=== PATIENT | male | born 1965 | race African-American/Black ===

== ENCOUNTER 2016-05-31 09:54 | Outpatient (CLI) | payer OTHER | END 2016-05-31 09:55 | disposition home or self-care (01) | DX: G47.33 Obstructive sleep apnea (adult) (pediatric) (principal) ==

== ENCOUNTER 2016-10-22 11:03 | Outpatient (CLI) | payer OTHER ==
[2016-10-22 19:54] LABS: ALBUMIN/GLOBULIN RATIO 1.4 (1.0-2.2); BILIRUBIN,TOTAL 0.6 mg/dL (0.2-1.0); BUN - BLOOD UREA NITROGEN 16 mg/dL (6-20); CALCIUM 9.5 mg/dL (8.5-10.3); CARBON DIOXIDE - CO2 29 mmol/L (21-32); CHLORIDE 100 mmol/L (101-111); CHOL/HDL RATIO 4.8 (<5.0); CHOLESTEROL 134 mg/dL; CREATININE 1.1 mg/dL (0.6-1.2); GFR - MDRD 86 (>89); GLUCOSE 115 mg/dL (70-100); HDL CHOLESTEROL 28 mg/dL; POTASSIUM 4.2 mmol/L (3.5-5.0); SODIUM 138 mmol/L (135-145); TOTAL PROTEIN 7.4 g/dL (6.7-8.2); TRIGLYCERIDES 392 mg/dL; VLDL CHOLESTEROL 78 mg/dL
== END 2016-10-22 11:04 | disposition home or self-care (01) ==
LOC: LAB.WCP 11:03
PROVIDERS: ATTEND Family Medicine
DX: E78.5 Hyperlipidemia, unspecified (principal); E11.9 Type 2 diabetes mellitus without complications
CPT/HCPCS: 36415; 80053; 80061; 83036

== ENCOUNTER 2017-10-01 10:53 | Outpatient (CLI) | payer OTHER | END 2017-10-01 10:54 | disposition home or self-care (01) | LOC: SC 10:53 | PROVIDERS: ATTEND Nurse Practitioner Family | DX: G47.33 Obstructive sleep apnea (adult) (pediatric) (principal) | CPT/HCPCS: 99212; 99214 ==

== ENCOUNTER 2017-10-11 07:27 | Outpatient (CLI) | payer OTHER ==
[2017-10-11 12:35] LABS: BASOPHILS # (AUTO) 0.1 10^3/uL (0.0-0.1); BASOPHILS % (AUTO) 1.2 %; EOSINOPHILS # (AUTO) 0.2 10^3/uL (0.0-0.7); EOSINOPHILS % (AUTO) 3.2 %; HGB - HEMOGLOBIN 16.5 g/dL (14.0-18.0); LYMPHOCYTES # (AUTO) 2.4 10^3/uL (1.5-3.5); LYMPHOCYTES % (AUTO) 35.6 %; MEAN CORPUSCULAR HEMOGLOBIN 28.3 pg (27.0-31.0); MEAN CORPUSCULAR HGB CONC 33.3 g/dL (32.0-36.0); MEAN CORPUSCULAR VOLUME 84.9 fL (80.0-94.0); MONOCYTES # (AUTO) 0.6 10^3/uL (0.0-1.0); MONOCYTES % (AUTO) 8.7 %; NEUTROPHILS # (AUTO) 3.4 10^3/uL (1.5-6.6); NEUTROPHILS % (AUTO) 51.3 %; PLT - PLATELET COUNT 211 10^3/uL (130-450); RED BLOOD COUNT 5.82 10^6/uL (4.70-6.10); RED CELL DISTRIBUTION WIDTH 13.3 % (12.0-15.0); WHITE BLOOD COUNT 6.7 x10^3/uL (4.8-10.8)
[2017-10-11 12:51] LABS: ALBUMIN 4.3 g/dL (3.2-5.5); ALBUMIN/GLOBULIN RATIO 1.3 (1.0-2.2); ALKALINE PHOSPHATASE 75 IU/L (42-121); ALT ALANINE AMINOTRANSFERASE 39 IU/L (10-60); AST ASPARTATE AMINOTRANSFERASE 33 IU/L (10-42); BUN - BLOOD UREA NITROGEN 15 mg/dL (6-20); CALCIUM 9.6 mg/dL (8.5-10.3); CARBON DIOXIDE - CO2 25 mmol/L (21-32); CHLORIDE 95 mmol/L (101-111); CHOLESTEROL 191 mg/dL; CREATININE 0.9 mg/dL (0.6-1.2); GFR - MDRD 108 (>89); GLUCOSE 146 mg/dL (70-100); HDL CHOLESTEROL 32 mg/dL; SODIUM 131 mmol/L (135-145); TOTAL PROTEIN 7.5 g/dL (6.7-8.2)
[2017-10-11 12:56] LABS: HB2 TOTAL 17.8 g/dL; HEMOGLOBIN A1C 1.33 g/dL
[2017-10-11 13:48] LABS: LDL CHOLESTEROL,DIRECT 46 mg/dL; LDLD/HDL RATIO 1.4 (<3.6)
== END 2017-10-11 07:28 | disposition home or self-care (01) ==
LOC: LAB.WCP 07:27
PROVIDERS: ATTEND Family Medicine
DX: E11.9 Type 2 diabetes mellitus without complications (principal); I10 Essential (primary) hypertension; E78.5 Hyperlipidemia, unspecified
CPT/HCPCS: 36415; 80053; 80061; 83036; 83721; 85025

== ENCOUNTER 2017-12-05 13:53 | Outpatient (CLI) | payer OTHER | END 2017-12-05 13:54 | disposition home or self-care (01) | LOC: SC 13:53 | PROVIDERS: ATTEND Nurse Practitioner Family | DX: G47.33 Obstructive sleep apnea (adult) (pediatric) (principal) | CPT/HCPCS: 99212; 99214 ==

== ENCOUNTER 2018-04-02 07:18 | Outpatient (CLI) | payer OTHER ==
[2018-04-02 12:13] LABS: BASOPHILS # (AUTO) 0.1 10^3/uL (0.0-0.1); BASOPHILS % (AUTO) 1.9 %; EOSINOPHILS # (AUTO) 0.3 10^3/uL (0.0-0.7); HGB - HEMOGLOBIN 16.3 g/dL (14.0-18.0); LYMPHOCYTES # (AUTO) 2.4 10^3/uL (1.5-3.5); LYMPHOCYTES % (AUTO) 41.5 %; MEAN CORPUSCULAR HEMOGLOBIN 29.2 pg (27.0-31.0); MEAN CORPUSCULAR HGB CONC 34.2 g/dL (32.0-36.0); MEAN CORPUSCULAR VOLUME 85.3 fL (80.0-94.0); MEAN PLATELET VOLUME 8.7 fL (7.4-11.4); MONOCYTES # (AUTO) 0.5 10^3/uL (0.0-1.0); MONOCYTES % (AUTO) 8.5 %; NEUTROPHILS # (AUTO) 2.5 10^3/uL (1.5-6.6); NEUTROPHILS % (AUTO) 43.1 %; PLT - PLATELET COUNT 231 10^3/uL (130-450); RED CELL DISTRIBUTION WIDTH 13.5 % (12.0-15.0); WHITE BLOOD COUNT 5.9 x10^3/uL (4.8-10.8)
[2018-04-02 14:07] LABS: ALBUMIN 4.4 g/dL (3.2-5.5); ALBUMIN/GLOBULIN RATIO 1.5 (1.0-2.2); ALKALINE PHOSPHATASE 88 IU/L (42-121); ALT ALANINE AMINOTRANSFERASE 35 IU/L (10-60); AST ASPARTATE AMINOTRANSFERASE 40 IU/L (10-42); BILIRUBIN,TOTAL 0.3 mg/dL (0.2-1.0); BUN - BLOOD UREA NITROGEN 12 mg/dL (6-20); CALCIUM 9.4 mg/dL (8.5-10.3); CARBON DIOXIDE - CO2 22 mmol/L (21-32); CHLORIDE 96 mmol/L (101-111); CHOL/HDL RATIO 5.4 (<5.0); CHOLESTEROL 178 mg/dL; CREATININE 0.9 mg/dL (0.6-1.2); GFR - MDRD 108 (>89); GLUCOSE 286 mg/dL (70-100); HDL CHOLESTEROL 33 mg/dL; SODIUM 131 mmol/L (135-145); TOTAL PROTEIN 7.4 g/dL (6.7-8.2)
[2018-04-02 14:16] LABS: LDL CHOLESTEROL,DIRECT 54 mg/dL; LDLD/HDL RATIO 1.6 (<3.6)
[2018-04-03 19:22] LABS: HEMOGLOBIN A1C 1.17 g/dL; HEMOGLOBIN A1C % 8.4 % (4.6-6.2)
== END 2018-04-02 23:59 | disposition home or self-care (01) ==
LOC: LAB.WCP 07:18
PROVIDERS: ATTEND Family Medicine
DX: I10 Essential (primary) hypertension (principal); E78.5 Hyperlipidemia, unspecified; E11.9 Type 2 diabetes mellitus without complications
CPT/HCPCS: 36415; 80053; 80061; 83036; 83721; 85025

== ENCOUNTER 2019-01-26 13:38 | Outpatient (CLI) | payer OTHER ==
[2019-01-26 19:14] LABS: BUN - BLOOD UREA NITROGEN 14 mg/dL (6-20); CALCIUM 9.8 mg/dL (8.5-10.3); CARBON DIOXIDE - CO2 26 mmol/L (21-32); CHLORIDE 99 mmol/L (101-111); CHOL/HDL RATIO 5.5 (<5.0); CHOLESTEROL 194 mg/dL; CREATININE 1.1 mg/dL (0.6-1.2); GFR - MDRD 85 (>89); GLUCOSE 171 mg/dL (70-100); HB2 TOTAL 16.3 g/dL; HDL CHOLESTEROL 35 mg/dL; HEMOGLOBIN A1C 1.15 g/dL; HEMOGLOBIN A1C % 8.6 % (4.6-6.2); SODIUM 135 mmol/L (135-145)
[2019-01-26 19:36] LABS: LDL CHOLESTEROL,DIRECT 76 mg/dL; LDLD/HDL RATIO 2.2 (<3.6)
== END 2019-01-26 23:59 | disposition home or self-care (01) ==
LOC: LAB.WCP 13:38
PROVIDERS: ATTEND Family Medicine
DX: E11.9 Type 2 diabetes mellitus without complications (principal); E78.5 Hyperlipidemia, unspecified
CPT/HCPCS: 36415; 80048; 80061; 83036; 83721

== ENCOUNTER 2019-01-26 13:57 | Outpatient (CLI) | payer OTHER ==
--- NOTE | 2019-01-26 15:32 | XRAY Report ---
Reason: LEFT, RIGHT SHOULDER PAIN Procedure Date: 01/26/2019 Accession Number: [id number] / [id number] Procedure: WCP - Shoulder 2 View BILAT CPT Code: Final Report FULL RESULT: EXAM: BILATERAL SHOULDER RADIOGRAPHY EXAM DATE: 01/26/2019 02:14 PM. CLINICAL HISTORY: Left, right shoulder pain. COMPARISON: None. TECHNIQUE: 2 views each side. FINDINGS: Bones: Normal. No fracture or bone lesion. Joints: The glenohumeral and acromioclavicular joints are normally located with degenerative changes at the AC joint bilaterally, overall mild. Soft tissues: A calcific density projecting over the rotator cuff interval is noted on the left. IMPRESSION: Question calcific tendinitis visualized on the left. Mild degenerative changes of the AC joint bilaterally. RADIA
== END 2019-01-26 23:59 | disposition home or self-care (01) ==
LOC: DI.WCP 13:57
PROVIDERS: ATTEND Family Medicine
DX: M19.011 Primary osteoarthritis, right shoulder (principal); M19.012 Primary osteoarthritis, left shoulder; E11.9 Type 2 diabetes mellitus without complications; E78.5 Hyperlipidemia, unspecified
CPT/HCPCS: 36415; 80048; 80061; 83036; 83721

== ENCOUNTER 2019-03-26 06:18 | Day surgery (SDC) | payer OTHER ==
[~2019-03-26 06:18] MED LIST: LACTATED RINGERS 1,000 ML IV ONE
[2019-03-26 08:34] VITALS: BP 114/78
[2019-03-26] MEDS ORDERED: fentaNYL 250 MCG/5 ML VIAL IVP ONE (09:58)
[2019-03-26] MEDS ORDERED: MIDAZOLAM 2 MG/2 ML VIAL IVP ONE (09:58)
== END 2019-03-26 06:19 | disposition home or self-care (01) ==
LOC: SDS 06:18
PROVIDERS: ATTEND Surgery
PROC: 0DJD8ZZ Inspection of Lower Intestinal Tract, Via Natural or Artificial Opening Endoscopic (ICD-10-PCS; principal; 2019-03-26 07:30)
DX: Z12.11 Encounter for screening for malignant neoplasm of colon (principal); E11.9 Type 2 diabetes mellitus without complications; I10 Essential (primary) hypertension; E78.5 Hyperlipidemia, unspecified; Z87.891 Personal history of nicotine dependence
CPT/HCPCS: 45378; J3010; J7120

== ENCOUNTER 2019-04-16 11:26 | Outpatient (CLI) | payer OTHER ==
[2019-04-16 18:47] LABS: HB2 TOTAL 16.1 g/dL; HEMOGLOBIN A1C 1.06 g/dL; HEMOGLOBIN A1C % 8.2 % (4.6-6.2)
[2019-04-16 18:51] LABS: ALBUMIN 4.7 g/dL (3.2-5.5); ALBUMIN/GLOBULIN RATIO 1.4 (1.0-2.2); ALKALINE PHOSPHATASE 69 IU/L (42-121); ALT ALANINE AMINOTRANSFERASE 28 IU/L (10-60); AST ASPARTATE AMINOTRANSFERASE 24 IU/L (10-42); BILIRUBIN,TOTAL 0.9 mg/dL (0.2-1.0); BUN - BLOOD UREA NITROGEN 12 mg/dL (6-20); CARBON DIOXIDE - CO2 25 mmol/L (21-32); CHLORIDE 95 mmol/L (101-111); CHOL/HDL RATIO 5.2 (<5.0); CHOLESTEROL 172 mg/dL; GFR - MDRD 95 (>89); GLUCOSE 153 mg/dL (70-100); HDL CHOLESTEROL 33 mg/dL; SODIUM 136 mmol/L (135-145)
[2019-04-16 19:21] LABS: LDL CHOLESTEROL,DIRECT 54 mg/dL; LDLD/HDL RATIO 1.6 (<3.6)
== END 2019-04-16 23:59 | disposition home or self-care (01) ==
LOC: LAB.WCP 11:26
PROVIDERS: ATTEND Family Medicine
DX: I10 Essential (primary) hypertension (principal); E11.9 Type 2 diabetes mellitus without complications; E78.5 Hyperlipidemia, unspecified
CPT/HCPCS: 36415; 80053; 80061; 83036; 83721

== ENCOUNTER 2019-11-13 07:00 | Outpatient (CLI) | payer OTHER ==
[2019-11-13 18:18] LABS: BASOPHILS # (AUTO) 0.1 10^3/uL (0.0-0.1); BASOPHILS % (AUTO) 1.2 %; EOSINOPHILS # (AUTO) 0.4 10^3/uL (0.0-0.7); EOSINOPHILS % (AUTO) 6.1 %; HGB - HEMOGLOBIN 15.8 g/dL (14.0-18.0); LYMPHOCYTES # (AUTO) 3.2 10^3/uL (1.5-3.5); LYMPHOCYTES % (AUTO) 46.8 %; MEAN CORPUSCULAR HEMOGLOBIN 27.2 pg (27.0-31.0); MEAN CORPUSCULAR VOLUME 84.9 fL (80.0-94.0); MEAN PLATELET VOLUME 9.8 fL (7.4-11.4); MONOCYTES # (AUTO) 0.5 10^3/uL (0.0-1.0); NEUTROPHILS # (AUTO) 2.6 10^3/uL (1.5-6.6); NEUTROPHILS % (AUTO) 38.3 %; PLT - PLATELET COUNT 259 10^3/uL (130-450); RED BLOOD COUNT 5.81 10^6/uL (4.70-6.10); WHITE BLOOD COUNT 6.9 x10^3/uL (4.8-10.8)
[2019-11-13 18:56] LABS: ALBUMIN 4.6 g/dL (3.2-5.5); ALBUMIN/GLOBULIN RATIO 1.4 (1.0-2.2); ALKALINE PHOSPHATASE 60 IU/L (42-121); ALT ALANINE AMINOTRANSFERASE 24 IU/L (10-60); AST ASPARTATE AMINOTRANSFERASE 22 IU/L (10-42); BILIRUBIN,TOTAL 0.4 mg/dL (0.2-1.0); BUN - BLOOD UREA NITROGEN 17 mg/dL (6-20); CALCIUM 9.5 mg/dL (8.5-10.3); CARBON DIOXIDE - CO2 29 mmol/L (21-32); CHLORIDE 94 mmol/L (101-111); CHOL/HDL RATIO 5.6 (<5.0); CHOLESTEROL 178 mg/dL; CREATININE 1.2 mg/dL (0.6-1.2); GLUCOSE 155 mg/dL (70-100); HDL CHOLESTEROL 32 mg/dL; SODIUM 131 mmol/L (135-145); TOTAL PROTEIN 7.8 g/dL (6.7-8.2)
[2019-11-13 19:04] LABS: CREATININE,URINE 98.7 mg/dL; MICROALBUM/CREATININE RATIO,UR 94.2 ug/mg (<30.0); MICROALBUMIN,URINE 9.3 mg/dL (0-300.0)
[2019-11-13 19:22] LABS: LDL CHOLESTEROL,DIRECT 58 mg/dL; LDLD/HDL RATIO 1.8 (<3.6)
[2019-11-13 20:06] LABS: HEMOGLOBIN A1c% 8.9 % (4.27-6.07)
== END 2019-11-13 23:59 | disposition home or self-care (01) ==
LOC: LAB.WCP 07:00 → EDSTATUS 10:46 → LAB.WCP 23:59
PROVIDERS: ATTEND Family Medicine
DX: E11.9 Type 2 diabetes mellitus without complications (principal); Z12.5 Encounter for screening for malignant neoplasm of prostate
CPT/HCPCS: 36415; 80053; 80061; 82043; 82570; 83036; 83721; 84153; 84443; 85025

== ENCOUNTER 2020-10-20 08:00 | Outpatient (CLI) | payer OTHER ==
[2020-10-20 12:15] LABS: BASOPHILS # (AUTO) 0.1 10^3/uL (0.0-0.1); BASOPHILS % (AUTO) 1.4 %; EOSINOPHILS # (AUTO) 0.4 10^3/uL (0.0-0.7); HCT - HEMATOCRIT 48.2 % (42.0-52.0); HGB - HEMOGLOBIN 15.6 g/dL (14.0-18.0); LYMPHOCYTES # (AUTO) 2.3 10^3/uL (1.5-3.5); LYMPHOCYTES % (AUTO) 31.4 %; MEAN CORPUSCULAR HEMOGLOBIN 27.3 pg (27.0-31.0); MEAN CORPUSCULAR HGB CONC 32.4 g/dL (32.0-36.0); MEAN CORPUSCULAR VOLUME 84.3 fL (80.0-94.0); MEAN PLATELET VOLUME 9.4 fL (7.4-11.4); MONOCYTES # (AUTO) 0.7 10^3/uL (0.0-1.0); MONOCYTES % (AUTO) 9.7 %; NEUTROPHILS # (AUTO) 3.7 10^3/uL (1.5-6.6); NEUTROPHILS % (AUTO) 51.1 %; PLT - PLATELET COUNT 264 10^3/uL (130-450); RED BLOOD COUNT 5.72 10^6/uL (4.70-6.10); RED CELL DISTRIBUTION WIDTH 13.1 % (12.0-15.0); WHITE BLOOD COUNT 7.3 x10^3/uL (4.8-10.8)
[2020-10-20 12:28] LABS: ALBUMIN 4.6 g/dL (3.2-5.5); ALBUMIN/GLOBULIN RATIO 1.4 (1.0-2.2); ALKALINE PHOSPHATASE 60 IU/L (42-121); ALT ALANINE AMINOTRANSFERASE 21 IU/L (10-60); AST ASPARTATE AMINOTRANSFERASE 22 IU/L (10-42); BILIRUBIN,TOTAL 0.9 mg/dL (0.2-1.0); BUN - BLOOD UREA NITROGEN 23 mg/dL (6-20); CALCIUM 9.9 mg/dL (8.5-10.3); CARBON DIOXIDE - CO2 27 mmol/L (21-32); CHLORIDE 97 mmol/L (101-111); CHOL/HDL RATIO 5.5 (<5.0); CHOLESTEROL 169 mg/dL; CREATININE 1.3 mg/dL (0.6-1.2); GFR - MDRD 70 (>89); GLUCOSE 151 mg/dL (70-100); HDL CHOLESTEROL 31 mg/dL; LDL CHOLESTEROL,CALCULATED 77 mg/dL; LDL/HDL RATIO 2.5 (<3.6); POTASSIUM 4.1 mmol/L (3.5-5.0); SODIUM 137 mmol/L (135-145); TOTAL PROTEIN 7.9 g/dL (6.7-8.2); TRIGLYCERIDES 306 mg/dL; VLDL CHOLESTEROL 61 mg/dL
[2020-10-20 12:32] LABS: CREATININE,URINE 99.6 mg/dL; MICROALBUM/CREATININE RATIO,UR 84.3 ug/mg (<30.0); MICROALBUMIN,URINE 8.4 mg/dL (0-300.0)
[2020-10-20 12:35] LABS: THYROID STIMULATING HORMONE 1.65 uIU/mL (0.34-5.60)
[2020-10-20 12:45] LABS: ESTIMATED AVERAGE GLUCOSE 166 mg/dL (70-100); HEMOGLOBIN A1c% 7.4 % (4.27-6.07)
== END 2020-10-20 23:59 | disposition home or self-care (01) ==
LOC: LAB.WCP 08:00
PROVIDERS: ATTEND Family Medicine
DX: I10 Essential (primary) hypertension (principal); E78.5 Hyperlipidemia, unspecified; E11.8 Type 2 diabetes mellitus with unspecified complications; Z12.5 Encounter for screening for malignant neoplasm of prostate
CPT/HCPCS: 36415; 80053; 80061; 82043; 82570; 83036; 83721; 84153; 84443; 85025

== ENCOUNTER 2021-06-16 07:19 | Outpatient (CLI) | payer OTHER ==
[2021-06-16 12:07] LABS: ESTIMATED AVERAGE GLUCOSE 243 mg/dL (70-100); HEMOGLOBIN A1c% 10.1 % (4.27-6.07)
[2021-06-16 12:13] LABS: BASOPHILS % (AUTO) 0.6 %; EOSINOPHILS % (AUTO) 0.2 %; HCT - HEMATOCRIT 48.1 % (42.0-52.0); HGB - HEMOGLOBIN 15.4 g/dL (14.0-18.0); LYMPHOCYTES % (AUTO) 13.1 %; MEAN CORPUSCULAR HEMOGLOBIN 26.8 pg (27.0-31.0); MEAN CORPUSCULAR VOLUME 83.7 fL (80.0-94.0); MEAN PLATELET VOLUME 10.4 fL (7.4-11.4); MONOCYTES % (AUTO) 8.9 %; NEUTROPHILS % (AUTO) 76.5 %; PLT - PLATELET COUNT 229 10^3/uL (130-450); RED BLOOD COUNT 5.75 10^6/uL (4.70-6.10); RED CELL DISTRIBUTION WIDTH 13.2 % (12.0-15.0)
[2021-06-16 12:18] LABS: ABNORMAL LYMPHS % (MANUAL) 0 %
[2021-06-16 12:35] LABS: CREATININE,URINE 365.3 mg/dL; MICROALBUM/CREATININE RATIO,UR 258.4 ug/mg (<30.0); MICROALBUMIN,URINE 94.4 mg/dL (0-300.0)
[2021-06-16 12:40] LABS: THYROID STIMULATING HORMONE 0.31 uIU/mL (0.34-5.60)
[2021-06-16 12:46] LABS: ALBUMIN 4.2 g/dL (3.2-5.5); ALBUMIN/GLOBULIN RATIO 1.2 (1.0-2.2); ALKALINE PHOSPHATASE 68 IU/L (42-121); ALT ALANINE AMINOTRANSFERASE 18 IU/L (10-60); AST ASPARTATE AMINOTRANSFERASE 18 IU/L (10-42); BILIRUBIN,TOTAL 0.8 mg/dL (0.2-1.0); BUN - BLOOD UREA NITROGEN 14 mg/dL (6-20); CALCIUM 9.6 mg/dL (8.5-10.3); CARBON DIOXIDE - CO2 26 mmol/L (21-32); CHLORIDE 98 mmol/L (101-111); CHOL/HDL RATIO 3.6 (<5.0); CHOLESTEROL 166 mg/dL; CREATININE 1.3 mg/dL (0.6-1.2); GFR - MDRD 70 (>89); GLUCOSE 217 mg/dL (70-100); HDL CHOLESTEROL 46 mg/dL; LDL CHOLESTEROL,CALCULATED 83 mg/dL; LDL/HDL RATIO 1.8 (<3.6); POTASSIUM 4.2 mmol/L (3.5-5.0); SODIUM 137 mmol/L (135-145); TOTAL PROTEIN 7.8 g/dL (6.7-8.2); TRIGLYCERIDES 183 mg/dL; VLDL CHOLESTEROL 37 mg/dL
[2021-06-16 12:54] LABS: BAND NEUTROPHILS % (MANUAL) 4 %; BASOPHILS # (MANUAL) 0.2 10^3/uL (0-0.1); BASOPHILS % (MANUAL) 1 %; LYMPHOCYTES # (MANUAL) 2.2 10^3/uL (1.5-3.5); LYMPHOCYTES % (MANUAL) 12 %; MONOCYTES # (MANUAL) 1.3 10^3/uL (0.0-1.0); NEUTROPHILS # (MANUAL) 14.4 10^3/uL (1.5-6.6); PLATELET ESTIMATE, MANUAL NORMAL (130-450,000) (NORMAL); PLATELET MORPHOLOGY NORMAL APPEARANCE (NORMAL); RBC MORPHOLOGY (MULTIPLE) NORMAL APPEARANCE (NORMAL); WBC MORPHOLOGY (MULTIPLE) 1+ TOXIC GRANULATION (NORMAL)
[2021-06-16 12:55] LABS: DIFFERENTIAL COMMENT MANUAL DIFFERENTIAL
[2021-06-16 13:15] LABS: FREE T4 (FREE THYROXINE) 0.89 ng/dL (0.58-1.64)
== END 2021-06-16 07:20 | disposition home or self-care (01) ==
LOC: LAB.N 07:19
PROVIDERS: ATTEND Family Medicine
DX: E11.8 Type 2 diabetes mellitus with unspecified complications (principal)
CPT/HCPCS: 36415; 80053; 80061; 82043; 82570; 83036; 83721; 84439; 84443; 85025

== ENCOUNTER 2021-06-23 07:33 | Outpatient (CLI) | payer OTHER ==
[2021-06-23 12:42] LABS: BASOPHILS % (AUTO) 0.8 %; EOSINOPHILS % (AUTO) 2.6 %; HCT - HEMATOCRIT 46.7 % (42.0-52.0); HGB - HEMOGLOBIN 14.8 g/dL (14.0-18.0); LYMPHOCYTES % (AUTO) 24.6 %; MEAN CORPUSCULAR HEMOGLOBIN 26.4 pg (27.0-31.0); MEAN CORPUSCULAR HGB CONC 31.7 g/dL (32.0-36.0); MEAN CORPUSCULAR VOLUME 83.4 fL (80.0-94.0); MEAN PLATELET VOLUME 9.8 fL (7.4-11.4); MONOCYTES % (AUTO) 11.4 %; NEUTROPHILS % (AUTO) 54.5 %; PLT - PLATELET COUNT 343 10^3/uL (130-450); RED CELL DISTRIBUTION WIDTH 13.1 % (12.0-15.0); WHITE BLOOD COUNT 11.5 x10^3/uL (4.8-10.8)
[2021-06-23 12:46] LABS: SLIDE REVIEW? Indicated
[2021-06-23 13:12] LABS: DIFFERENTIAL COMMENT MANUAL DIFFERENTIAL; PLATELET ESTIMATE, MANUAL NORMAL (130-450,000) (NORMAL); PLATELET MORPHOLOGY NORMAL APPEARANCE (NORMAL); RBC MORPHOLOGY (MULTIPLE) NORMAL APPEARANCE (NORMAL)
== END 2021-06-23 07:34 | disposition home or self-care (01) ==
LOC: LAB.N 07:33
PROVIDERS: ATTEND Family Medicine
DX: D72.829 Elevated white blood cell count, unspecified (principal)
CPT/HCPCS: 36415; 81599; 85025; 88184; 88185; 88189

== ENCOUNTER 2021-07-11 08:14 | Outpatient (CLI) | payer OTHER ==
--- NOTE | 2021-07-11 10:36 | CARDIAC PROCEDURE NOTE ---
Stress Test Report Service Date: 07/11/21 Service Time: 09:00 Ordering Provider: Kusum Castellanos Indication for Test: Assess chest discomfort. Significant Medical History: Patient with multiple risk factors for CAD, with history of both exertional and non-exertional pressure-like lower left chest discomfort over the past 8-10 months, varying in severity. 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 He reports the onset of the symptom complex last summer when he was trying to increase his daily exercise level, through strenuous walking. After backing off on this more strenuous walking he was less bothered for a while but during the mid winter snows he was assisting some of his team in performing strenuous activities such as snow shoveling and became more aware of the discomfort during these activities. He reports episodes occurring intermittently at rest as well as with exercise, typically with discomfort not associated with diaphoresis shortness of breath, lightheadedness or dizziness. He believes his stamina has been somewhat decreased over the past few months. He reports a "slight" episode occurring last evening while he was minimally active, with symptoms waxing and waning for about 30 minutes. He has used various anti-acid medications intermittently, without clear relief and has not identified any other alleviating factors/interventions. Cardiac Risk Factors: Positive for hypertension (treated at least 30 yrs), diabetes (treated ~5 years), hyperlipidemia and active tobacco use (cigarettes and cigars); he does not know whether other family members have coronary artery disease. He also has the modifying factor of obstructive sleep apnea treated with CPAP. Type of Stress Test: ETT with Myocardial Perfusion Imaging Procedure: -Exercise Treadmill Test- After signing informed consent, the patient underwent rest SPECT imaging and then performed treadmill exercise using a Abdirashid protocol. The patient exercised for 7 minutes 57 seconds and achieved a peak heart rate of 132 (79 percent predicted maximum heart rate for age), and an estimated workload of 10.1 METS. The test was terminated due to fatigue, shortness of breath and chest pain, that occurred before achieving target HR and was becoming limiting. Resting heart rate: 76 Peak heart rate: 132 Normal response to exercise. Resting BP: 144/99 Peak BP: 191/87 Modestly hypertensive at rest with physiologic responses of systolic and diastolic BPs to exercise. Rhythm during exercise: Sinus rhythm throughout; had rare PVCs early in exercise that became more frequent, with ventricular bigeminy in early Recovery period. Symptoms: He described his usual lower chest discomfort, starting in early stage 2 (2/10 in severity), becoming 4/10 and associated with transient lightheadness. Symptoms resolved within 4 minutes of Recovery. EKG at rest showed normal sinus rhythm, with nonspecific flattening of T-waves in the anterolateral leads; ST segments isoelectric, no evidence of prior infarct. EKG at peak stress showed downsloping ST depression of >1.0 mm in leads V2-V3, likely meeting diagnostic EKG criteria for ischemia. In Recovery HR and BP returned towards resting levels. Nuclear imaging was performed at rest and with stress and will be reported separately. IJerardo MD, was present throughout this treadmill stress study and supervised it in its entirety. Summary: 1) Exercise tolerance moderately reduced for age as evidenced by BERNA of 16.5%. 2) Borderline resting EKG. 3) Submaximal test with HR reaching 79% of PMHR due to chest pain becoming limiting. 4) Hypertensive at rest with physiologic BP response to exercise. 5) ST depression likely meeting diagnostic EKG criteria for ischemia was seen at peak stress and into Recovery. 6) Analysis of gated images reveals left ventricular enlargement, with lateral dyskinesis but overall normal range LV ejection fraction; on-site SPECT analysis reveals a large fixed inferior defect, as well as a large lateral wall defect. There may be some shade-scar ischemia adjacent to the lateral defect, and a small area of anterior ischemia cannot be excluded. See formal interpretation by off- site Radiologist in separate report. CONCLUSIONS: 1) Abnormal Abdirashid protocol treadmill stress test, with recreation of patient's usual exertional chest discomfort and ST depression likely meeting criteria for ischemia. 2) Occurrence of ST depression and ventricular bigeminy in early Recovery are adverse predictors. 3) Markedly abnormal myocardial perfusion imaging results, suggestive of large inferior and lateral infarcts, with area of shade-scar ischemia adjacent to the lateral defect, as well as a small area of possible anterior wall inducible ischemia. 4) Recommend initiation of ASA and statin (if not already so treated) and urgent referral to Cardiology for coronary angiography. Message sent to referring provider, Dr Castellanos.
--- NOTE | 2021-07-11 16:46 | Nuclear Medicine Report ---
PROCEDURE: Rest and exercise myocardial perfusion SPECT with gated imaging and ejection fraction INDICATIONS: CHEST PAIN RADIOPHARMACEUTICAL: 15.1 mCi Tc-99m Myoview IV at rest and 42.4 mCi Tc-99m Myoview IV at peak exerc ise. [id number] was performed. TECHNIQUE: Radiopharmaceutical was injected at peak stress test, and also at rest. SPECT images wer e obtained. SPECT myocardial perfusion images were displayed in short axis, horizontal long axis, an d vertical long axis views. Gated images were reviewed using Auto[employer] software. COMPARISON: None available. FINDINGS: Raw data: There is good myocardial labeling by radiotracer. No significant motion artifacts. Lung- to-heart ratio is 0.35 (normal is less than 0.46 for tetrafosmin tracer). Left ventricle function: Gated images demonstrate normal left ventricle wall thickening. The lateral wall is mildly dyskinetic. No transient ischemic dilation; TID is 0.91 (normal less than 1.30). Th e left ventricle end-diastolic volume is mildly increased. Left ventricle stress ejection fraction i s 59%; normal values are above 45%. Myocardial perfusion: There is a large, severe, fixed perfusion defect in the lateral wall of the le ft ventricle, consistent myocardial infarction. In addition, there is a large, severe, fixed perfusio n defect in the basal inferior wall consistent with myocardial infarction. There is no significant re versible defect to suggest borderline ischemia. IMPRESSION: Abnormal myocardial perfusion images. 1. There are large, severe, fixed perfusion defects involving the lateral wall and inferior wall, con sistent with myocardial infarcts. 2. No significant shade-infarct ischemia. 3. Mild left ventricular enlargement. There is lateral wall dyskinesia. The left ventricle ejection f raction is within normal limits. 4. Please correlate with stress EKG result. PQRS ATTESTATIONS: Measure 322 - Is this imaging test primarily performed on a low-risk surgery patient for preoperative evaluation within 30 days preceding their low-risk non-cardiac surgery? Low-risk surgery is defined as cardiac or myocardial infarction less than 1%, including (but not limited to) endoscopic pr ocedures, superficial procedures, cataract surgery, and excisional breast surgery: Answer: No Measure 323 - Is this imaging test performed primarily for the monitoring of an asymptomatic patient who had percutaneous coronary intervention on the visit date or within 2 years of the visit date? An swer: No Measure 324 - Is this imaging test performed primarily for the initial detection and risk assessment on an asymptomatic, low coronary heart disease patient? Low CHD risk definition = clinicians should consider the maximum number of available patient factors used to estimate risk based on [place] (A TP III criteria), typically age, gender, diabetes, smoking status, and use of blood pressure medicati on, and integrate age appropriate estimates for missing elements, such as LDL or standard blood press ure. Answer: No Reviewed by: Jacob Kingsley MD on 07/11/2021 4:45 PM PDT Approved by: Jacob Kingsley MD on 07/11/2021 4:45 PM PDT Station ID: [id number]
== END 2021-07-11 08:15 | disposition home or self-care (01) ==
LOC: DI 08:14
PROVIDERS: ATTEND Family Medicine
DX: R07.9 Chest pain, unspecified (principal); E11.65 Type 2 diabetes mellitus with hyperglycemia; I51.7 Cardiomegaly; I10 Essential (primary) hypertension; E78.5 Hyperlipidemia, unspecified; G47.33 Obstructive sleep apnea (adult) (pediatric); F17.200 Nicotine dependence, unspecified, uncomplicated
CPT/HCPCS: 78452; 93017; A9500; 93016; 93018

== ENCOUNTER 2022-04-25 10:03 | Outpatient (CLI) | payer OTHER ==
[2022-04-25 12:41] LABS: CHOL/HDL RATIO 3.4 (<5.0); CHOLESTEROL 112 mg/dL; HDL CHOLESTEROL 33 mg/dL; LDL CHOLESTEROL,CALCULATED 65 mg/dL; TRIGLYCERIDES 70 mg/dL; VLDL CHOLESTEROL 14 mg/dL
[2022-04-25 12:54] LABS: ESTIMATED AVERAGE GLUCOSE 192 mg/dL (70-100); HEMOGLOBIN A1c% 8.3 % (4.27-6.07)
[2022-04-25 13:07] LABS: CREATININE,URINE 152.5 mg/dL; MICROALBUM/CREATININE RATIO,UR 442.6 ug/mg (<30.0); MICROALBUMIN,URINE 67.5 mg/dL (0-300.0)
== END 2022-04-25 10:04 | disposition home or self-care (01) ==
LOC: LAB.N 10:03
PROVIDERS: ATTEND Nurse Practitioner
DX: E78.5 Hyperlipidemia, unspecified (principal); E11.8 Type 2 diabetes mellitus with unspecified complications
CPT/HCPCS: 36415; 80061; 82043; 82570; 83036; 83721

== ENCOUNTER 2022-08-11 09:45 | Outpatient (CLI) | payer OTHER ==
[2022-08-11 19:03] LABS: BASOPHILS # (AUTO) 0.1 10^3/uL (0.0-0.1); BASOPHILS % (AUTO) 1.1 %; EOSINOPHILS # (AUTO) 0.4 10^3/uL (0.0-0.7); HCT - HEMATOCRIT 46.3 % (42.0-52.0); HGB - HEMOGLOBIN 14.5 g/dL (14.0-18.0); LYMPHOCYTES # (AUTO) 3.1 10^3/uL (1.5-3.5); LYMPHOCYTES % (AUTO) 40.3 %; MEAN CORPUSCULAR HEMOGLOBIN 26.8 pg (27.0-31.0); MEAN CORPUSCULAR HGB CONC 31.3 g/dL (32.0-36.0); MEAN CORPUSCULAR VOLUME 85.4 fL (80.0-94.0); MEAN PLATELET VOLUME 9.7 fL (7.4-11.4); MONOCYTES # (AUTO) 0.6 10^3/uL (0.0-1.0); MONOCYTES % (AUTO) 8.2 %; NEUTROPHILS # (AUTO) 3.4 10^3/uL (1.5-6.6); NEUTROPHILS % (AUTO) 45.1 %; PLT - PLATELET COUNT 299 10^3/uL (130-450); RED BLOOD COUNT 5.42 10^6/uL (4.70-6.10); RED CELL DISTRIBUTION WIDTH 13.7 % (12.0-15.0); WHITE BLOOD COUNT 7.6 x10^3/uL (4.8-10.8)
[2022-08-11 19:58] LABS: CREATININE,URINE 156.1 mg/dL; MICROALBUM/CREATININE RATIO,UR 134.5 ug/mg (<30.0)
[2022-08-11 20:00] LABS: ALBUMIN 4.3 g/dL (3.2-5.5); ALBUMIN/GLOBULIN RATIO 1.3 (1.0-2.2); ALKALINE PHOSPHATASE 53 IU/L (42-121); ALT ALANINE AMINOTRANSFERASE 22 IU/L (10-60); AST ASPARTATE AMINOTRANSFERASE 23 IU/L (10-42); BILIRUBIN,TOTAL 0.8 mg/dL (0.2-1.0); BUN - BLOOD UREA NITROGEN 16 mg/dL (6-20); CALCIUM 9.6 mg/dL (8.5-10.3); CARBON DIOXIDE - CO2 25 mmol/L (21-32); CHLORIDE 102 mmol/L (101-111); CHOL/HDL RATIO 4.2 (<5.0); CHOLESTEROL 117 mg/dL; CREATININE 1.1 mg/dL (0.6-1.2); GFR - MDRD 84 (>89); GLUCOSE 124 mg/dL (70-100); HDL CHOLESTEROL 28 mg/dL; LDL CHOLESTEROL,CALCULATED 47 mg/dL; LDL/HDL RATIO 1.7 (<3.6); POTASSIUM 3.8 mmol/L (3.5-5.0); SODIUM 135 mmol/L (135-145); TOTAL PROTEIN 7.7 g/dL (6.7-8.2); TRIGLYCERIDES 212 mg/dL; VLDL CHOLESTEROL 42 mg/dL
[2022-08-11 21:31] LABS: ESTIMATED AVERAGE GLUCOSE 174 mg/dL (70-100); HEMOGLOBIN A1c% 7.7 % (4.27-6.07)
== END 2022-08-11 09:46 | disposition home or self-care (01) ==
LOC: LAB.N 09:45
PROVIDERS: ATTEND Nurse Practitioner
DX: E11.65 Type 2 diabetes mellitus with hyperglycemia (principal); Z12.5 Encounter for screening for malignant neoplasm of prostate; E78.5 Hyperlipidemia, unspecified
CPT/HCPCS: 36415; 80053; 80061; 82043; 82570; 83036; 83721; 84153; 85025